=== PATIENT | male | born 1995 | race Caucasian/White ===

== ENCOUNTER 2017-10-24 19:44 | Emergency (ER) | payer SELFPAY ==
[~2017-10-24] VITALS: Ht 167.6 cm; Wt 4.5 kg
[2017-10-24 20:02] VITALS: Ht 167.6 cm; Wt 4.5 kg
[2017-10-24] MEDS ORDERED: CLEOCIN HCL300 MG PO (21:58)
[2017-10-24] MEDS ORDERED: TYLENOL W/CODEI1 TAB PO (21:58)
[2017-10-24 22:12] VITALS: BP 132/77
== END 2017-10-24 22:12 | disposition home or self-care (01) ==
LOC: D.ER 19:44
DX: K04.7 Periapical abscess without sinus (principal); K08.89 Other specified disorders of teeth and supporting structures; F17.200 Nicotine dependence, unspecified, uncomplicated